=== PATIENT | female | born 1955 | race Caucasian/White ===

== ENCOUNTER 2019-03-31 09:58 | Emergency (ER) | payer SELFPAY ==
[~2019-03-31] VITALS: Ht 157.5 cm; Wt 95.4 kg
[~2019-03-31 09:58] MED LIST: ENAL20TA PO; NAPR-985 PO
[2019-03-31 10:03] VITALS: Ht 157.5 cm; Wt 95.4 kg
[2019-03-31] MEDS ORDERED: KETOROLAC 30 MG INJ IM STA (10:21)
[2019-03-31] MEDS ORDERED: ALPRAZOLAM 0.25 MG TAB PO ONE (10:30)
--- NOTE | 2019-03-31 10:44 | ERD ---
ER Documentation Chief Complaint Chief Complaint ARMENDARIZ x 8 days with dizziness (hx of HTN) HPI 63-year-old woman complains of dizziness and headache x1 week, she has had multiple similar episodes in the past and has had this for months. She states the pain is diffuse, constant, nonradiating and unprovoked. She denies neck pain or stiffness, no fevers or chills, no chest pain or shortness of breath. ROS All systems reviewed and are negative except as per history of present illness. Medications Home Meds Active Scripts Naproxen* (Naprosyn*) 500 Mg Tablet, 500 MG PO BID PRN for PAIN AND/OR INFLAMMATION, #30 TAB Prov:FRANCES JIMENEZ MD 03/31/19 Enalapril Maleate* (Enalapril Maleate*) 20 Mg Tablet, 20 MG PO DAILY, #30 TAB Prov:FRANCES JIMENEZ MD 03/31/19 Allergies Allergies: Coded Allergies: No Known Drug Allergies (Verified Allergy, Unknown, 12/08/13) PMhx/Soc Hypertension, anxiety History of Surgery: No Anesthesia Reaction: No Hx Neurological Disorder: No Hx Respiratory Disorders: No Hx Cardiac Disorders: No Hx Psychiatric Problems: No Hx Miscellaneous Medical Probl: Yes (HTN) Hx Alcohol Use: No Hx Substance Use: No Hx Tobacco Use: No Smoking Status: Never smoker Physical Exam Vitals Vital Signs Date Temp Pulse Resp B/P (MAP) Pulse Ox O2 O2 Flow FiO2 Time Delivery Rate 03/31/19 98.2 70 18 134/77 98 Room Air 10:57 (96) 03/31/19 98.7 72 20 160/89 98 10:03 (112) Physical Exam GENERAL: Well-developed, well-nourished, well-hydrated, appears anxious, afebrile NEURO: Alert and oriented 3, cranial nerves II through XII intact bilaterally, pupils equal round reactive to light, no focal deficits or facial asymmetry, sensation intact distally Strength 5/5 in upper and lower extremities bilaterally CARDIAC: Regular rate and rhythm, no murmurs rubs or gallops LUNGS: Clear bilaterally no wheezing crackles or stridor SKIN: Warm and dry to touch, no abrasions, contusions, or hematomas, no lacerations, no ecchymosis, no target lesions, and without ulcers EXTREMITIES: No clubbing cyanosis or edema, calves are bilaterally symmetrical, no Homans sign, no popliteal cord sign. Distal pulses equal and bilateral PSYCH: Anxious Results 24 hrs Laboratory Tests Test 03/31/19 10:46 Urine Color STRAW Urine Clarity CLEAR Urine pH 6.0 Urine Specific [place] 1.009 Urine Ketones NEGATIVE mg/dL Urine Nitrite NEGATIVE mg/dL Urine Bilirubin NEGATIVE mg/dL Urine Urobilinogen NEGATIVE mg/dL Urine Leukocyte Esterase NEGATIVE Esteban/ul Urine Hemoglobin NEGATIVE mg/dL Urine Glucose NEGATIVE mg/dL Urine Total Protein NEGATIVE mg/dl Current Medications Medications Dose Sig/Shahid Start Time Status Last (Trade) Ordered Route PRN Stop Time Admin Dose Reason Admin Ketorolac 30 mg ONCE STAT 03/31/19 DC 03/31/19 Tromethamine IM 10:21 03/31/19 10:32 (Toradol) 10:23 Alprazolam 0.5 mg ONCE ONCE 03/31/19 DC 03/31/19 (Xanax) PO 10:30 03/31/19 10:31 10:31 Procedures/MDM Patient placed on cardiac specialist rhythm strip revealed a sinus rhythm at about 80 bpm. Patient was afebrile. I administered Toradol 30 mg IM x1 for pain and alprazolam 0.5 mg p.o. for anxiety. Urinalysis was negative for infection. Differential diagnoses considered, included but not limited to acute coronary syndrome, pulmonary embolism, aortic dissection, abdominal aortic aneurysm, sepsis, stroke, meningitis, encephalitis, pneumonia, appendicitis, cholecystitis, bowel obstruction, pyelonephritis, nephrolithiasis, cystitis, as well as metabolic, hematologic, and electrolyte abnormalities. As well as abscess, cellulitis, fractures, and dislocations. Patient feels much better at this time, and vital signs are normal, symptoms have improved. I did give strict instructions to return to the ED if symptoms continue or worsen, patient will otherwise follow-up with primary care physician. Patient understood instructions and agreed to plan. Disclaimer: Inadvertent spelling and grammatical errors are likely due to EHR/dictation software use and do not reflect on the overall quality of patient care. Also, please note that the electronic time recorded on this note does not necessarily reflect the actual time of the patient encounter. Departure Diagnosis: Primary Impression: Headache Headache type: tension-type Headache chronicity pattern: acute headache Intractability: not intractable Qualified Codes: G44.209 - Tension-type headache, unspecified, not intractable Additional Impressions: Hypertension Hypertension type: essential hypertension Qualified Codes: I10 - Essential (primary) hypertension Anxiety in acute stress reaction Condition: FRANCES Mccauley MD Mar 31, 2019 10:44
[2019-03-31 12:11] VITALS: BP 148/83; PULSE 68; RESP 16
== END 2019-03-31 12:14 | disposition home or self-care (01) ==
LOC: E/R 09:58
DX: G44.209 Tension-type headache, unspecified, not intractable (principal); I10 Essential (primary) hypertension; R40.2142 Coma scale, eyes open, spontaneous, at arrival to emergency department; R40.2362 Coma scale, best motor response, obeys commands, at arrival to emergency department; R40.2252 Coma scale, best verbal response, oriented, at arrival to emergency department; F41.1 Generalized anxiety disorder; F43.0 Acute stress reaction
CPT/HCPCS: 81003; 96372; 99284; J1885